=== PATIENT | male | born 1950 | race American Indian/Alaskan Native ===

== ENCOUNTER 2018-10-12 05:42 | Observation (INO) | payer MEDICARE ==
[2018-10-12] MEDS ORDERED: ZOFRAN ONE ×2 (06:10→10:27)
[2018-10-12] MEDS ORDERED: ZOFRAN IV ONE (06:16)
[2018-10-12 07:40] LABS: Albumin 3.1 g/dL (3.9-5); Calcium 9.1 mg/dL (8.4-10.2)
--- NOTE | 2018-10-12 07:44 | Emergency Department Report ---
ED Syncope HPI - General Chief Complaint: Syncope Stated Complaint: SYNCOPE Time Seen by Provider: 10/12/18 07:15 Source: patient Exam Limitations: no limitations - History of Present Illness Initial Comments: CC: "I think I was dehydrated." HPI: Mr. Steele is a very pleasant 68-year-old male with his at the bedside who presents via EMS with syncope. He has history of coronary artery disease, CHF, hypertension, diabetes mellitus who presents with syncope. Since Tuesday he has had severe nausea and vomiting. He has been unable to keep down his medication. His explains that he has had these vomiting episodes for several years without a concrete diagnosis. This morning he awakened and a coughing fit. He then passed out. He was arousable by the . then heard yell out for help. She witnessed a subsequent syncopal episode. called 911 at that time. Last hospitalization was in 2007 according to patient and . At that time he was evaluated for a heart attack. He has scheduled cardiac catheter sterilization at the [facility]. He was told that he may have blockages in his heart. For the past 2 years he has been experiencing severe fatigue. Drinks 7-8 alcoholic drinks daily. Started to cut down on this amount 3 weeks ago. He smokes marijuana also. PCP is affiliated with the [facility]. 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 Smokes marijuana. Drinks 7-8 drinks daily. Timing/Prior Episodes: multiple episodes today Precipitating Factors: Positive: other (cough) Loss of Consciousness: brief (seconds) Current Symptoms: back to normal - Related Data Allergies/Adverse Reactions: Allergies No Known Allergies Allergy (Verified 10/12/18 06:16) ED Review of Systems ROS: Stated complaint: SYNCOPE Other details as noted in HPI Comment: All other systems reviewed and negative Constitutional: malaise. denies: fever Cardiovascular: syncope. denies: chest pain Gastrointestinal: denies: abdominal pain ED Past Medical Hx - Past Medical History Previous Medical History?: Yes Hx Hypertension: Yes Hx Heart Attack/AMI: Yes (2007) Hx Congestive Heart Failure: Yes Hx Diabetes: Yes Hx GERD: Yes Additional medical history: need pace maker - Social History Smoking Status: Unknown if ever smoked Substance Use Type: Marijuana ED Physical Exam - General Limitations: No Limitations General appearance: alert, in no apparent distress - Head Head exam: Present: atraumatic, normocephalic - Eye Eye exam: Present: normal appearance - ENT ENT exam: Present: mucous membranes moist - Neck Neck exam: Present: normal inspection, full ROM - Respiratory Respiratory exam: Present: normal lung sounds bilaterally. Absent: respiratory distress, wheezes, rales, rhonchi - Cardiovascular Cardiovascular Exam: Present: regular rate, normal rhythm, normal heart sounds. Absent: systolic murmur, diastolic murmur, rubs, gallop - GI/Abdominal GI/Abdominal exam: Present: soft, normal bowel sounds. Absent: distended, tenderness, guarding, rebound - Rectal Rectal exam: Present: deferred - Extremities Exam Extremities exam: Present: normal inspection - Back Exam Back exam: Present: normal inspection - Neurological Exam Neurological exam: Present: alert, oriented X3 - Psychiatric Psychiatric exam: Present: normal affect, normal mood - Skin Skin exam: Present: warm, dry, intact, normal color. Absent: rash ED Course Vital Signs 10/12/18 10/12/18 10/12/18 05:52 06:00 06:07 Temperature 97.5 F L Pulse Rate 66 Respiratory 19 Rate Blood Pressure 88/60 Blood Pressure [Right] O2 Sat by Pulse 94 98 Oximetry 10/12/18 10/12/18 10/12/18 06:16 06:30 08:04 Temperature Pulse Rate 67 65 Respiratory 21 21 19 Rate Blood Pressure 167/99 119/78 Blood Pressure 109/73 [Right] O2 Sat by Pulse 99 98 97 Oximetry ED Medical Decision Making - Lab Data Result diagrams: 10/12/18 07:48 10/12/18 06:54 Laboratory Results - last 24 hr 10/12/18 10/12/18 10/12/18 06:54 07:48 07:48 WBC 9.4 RBC 4.84 Hgb 15.2 Hct 45.7 H MCV 94 MCH 31 MCHC 33 RDW 15.1 Plt Count 239 Lymph % (Auto) Account Group Supervisor [place] % (Auto) Account Group Supervisor Eos % (Auto) Account Group Supervisor Baso % (Auto) Account Group Supervisor Lymph # Account Group Supervisor [place] # Account Group Supervisor Eos # Account Group Supervisor Baso # Account Group Supervisor Seg Neutrophils % Account Group Supervisor Seg Neutrophils # Account Group Supervisor Sodium 132 L Potassium 3.7 Chloride 93.1 L Carbon Dioxide 23 Anion Gap 20 BUN 37 H Creatinine 3.8 H Estimated GFR 19 BUN/Creatinine Ratio 10 Glucose 242 H Calcium 9.1 Total Bilirubin 1.40 H AST 18 ALT 12 Alkaline Phosphatase 66 Troponin T 0.026 Total Protein 6.9 Albumin 3.1 L Albumin/Globulin Ratio 0.8 - EKG Data 10/12/18 07:43 EKG obtained 0555 Normal sinus rhythm rate left axis deviation prolonged QT interval no significant ST elevation positive LVH and nonspecific T-wave pattern - Medical Decision Making Mr. Steele has history of CAD, CHF, hypertension and diabetes mellitus, alcohol abuse who presents with 2 single episodes witnessed by . The episodes were brief. Differential diagnosis includes orthostatic hypotension, vasovagal syncope, arrhythmia. I do not suspect pulmonary embolism with this presentation. He does not have tachycardia, dyspnea or chest pain currently. He did have hypotension upon arrival as reported to me by triage nurse. Hypotension resolved with IV fluid. Has had GI fluid loss with hx of vomiting for the past 5 days. Admitted to hospitalist service for cardiac monitoring and further evaluation. He has outpatient cardiac catheterization scheduled on Tuesday. Upon lab review, abnormal kidney function revealed. Patient and did inform me that Mr. Steele did have declining kidney function which has been followed at the [facility]. Upon review of old labs, GFR has decreased from 30 to 19 from 2016. Critical care attestation.: If time is entered above; I have spent that time in minutes in the direct care of this critically ill patient, excluding procedure time. ED Disposition Clinical Impression: Syncope, [id number] kidney injury Disposition: OP ADMIT IP TO THIS HOSP Is pt being admited?: Yes Does the pt Need Aspirin: No Condition: Stable Instructions: Syncope (ED)
[2018-10-12 08:02] LABS: Hematocrit 45.7 % (35.5-45.6); Hemoglobin 15.2 gm/dl (11.8-15.2); Mean Corpuscular HGB Conc 33 % (32-34); Mean Corpuscular Volume 94 fl (84-94); Platelet Count 239 K/mm3 (140-440); Red Blood Count 4.84 M/mm3 (3.65-5.03); Red Cell Distribution Width 15.1 % (13.2-15.2)
[2018-10-12] MEDS ORDERED: SODIUM CHLORIDE FLUSH SYRINGE 10 ML IV PRN (08:49)
[2018-10-12] MEDS ORDERED: ZOFRAN IV PRN (08:49)
[2018-10-12] MEDS ORDERED: REGLAN IV PRN (08:49)
[2018-10-12] MEDS ORDERED: TYLENOL PO PRN (08:49)
[2018-10-12] MEDS ORDERED: D50W (25GM) Syringe IV PRN (08:50)
[2018-10-12] MEDS ORDERED: NACL 0.9% 1000 ML 1,000 ML IV SCH (09:00)
[2018-10-12] MEDS: LOVENOX SUB-Q SCH ×2 (11:37→11:44)
[2018-10-12] MEDS: SODIUM CHLORIDE FLUSH SYRINGE 10 ML IV SCH ×2 (11:38→21:36)
[2018-10-12] MEDS: PROTONIX IV SCH (12:00)
[2018-10-12] MEDS: HumaLOG SUB-Q SCH ×3 (12:02→21:36)
--- NOTE | 2018-10-12 15:04 | Cat Scan Report ---
CT ABDOMEN AND PELVIS WITHOUT CONTRAST HISTORY: vomiting COMPARISON: None. TECHNIQUE: Axial CT images were obtained through the abdomen and pelvis without IV contrast. Sagittal and coronal reformatted images. All CT scans at this location are performed using CT dose reduction for ALARA by means of automated exposure control. FINDINGS: CT ABDOMEN: Lung Bases: The visualized lung bases are clear. Mild cardiomegaly is noted. Liver: The liver is slightly sunken and cirrhotic. Biliary: 1.2 cm calcified gallstone is noted in the fundus of the gallbladder. No biliary dilatation or inflammation. Spleen: No significant abnormality. Unenlarged. Pancreas: No significant abnormality. Adrenals: No significant abnormality. Kidneys: No significant abnormality. Lymphatics: No lymphadenopathy. Vasculature: Mild diffuse aortic calcifications. No aneurysm. Bowel/Peritoneum: There are multiple small bowel loops in the left and lower abdomen which demonstrat e mild circumferential thickening and contain mild fluid. There is no evidence for pneumatosis, obstr uction or free air. The remaining bowel loops are unremarkable. Small ascites is noted in the pelvis and paracolic gutters. Normal appendix. CT PELVIS: : No significant abnormality. Osseous Structures: Mild degenerative changes. Additional Findings: Small right paraumbilical hernia containing fat is identified with a 1 cm neck. IMPRESSION: Mild circumferential thickening of multiple small bowel loops are identified consistent with a nonspe cific enteritis. Cirrhosis of the liver. Small ascites. Gallstone. Mild cardiomegaly. Small right paraumbilical hernia. Signer Name: Jaden Post Jr, MD Signed: 10/12/2018 3:00 PM Workstation Name: [id number]
[2018-10-12 19:32] LABS: Bilirubin,Urine NEG (Negative); Blood,Urine NEG (Negative); Color,Urine Amber (Yellow); Hyaline Casts,Urine 2 /LPF; RBC,Urine < 1.0 /HPF (0.0-6.0); Urobilinogen,Urine < 2.0 mg/dL (<2.0)
--- NOTE | 2018-10-12 22:43 | History and Physical Report ---
History of Present Illness Date of admission: 10/12/18 08:49 History of present illness: 68m who pw intractable n/v and syncope hx of chf ef 30% plan npo, PPI, GI consult fup echo, zofran and reglan prn Medications and Allergies Allergies Allergy/AdvReac Type Severity Reaction Status Date / Time No Known Allergies Allergy Verified 10/12/18 06:16 Home Medications Medication Instructions Recorded Confirmed Last Taken Type Aspirin [Aspirin BABY CHEW TAB] 81 mg PO QAM 10/12/18 10/12/18 Unknown History Atorvastatin [Lipitor Tab] 40 mg PO QHS 10/12/18 10/12/18 Unknown History Carvedilol [Coreg] 25 mg PO DAILY 10/12/18 10/12/18 Unknown History Pantoprazole [Protonix] 40 mg PO QDAY 10/12/18 10/12/18 Unknown History Saxagliptin HCl [Onglyza] 5 mg PO QDAY 10/12/18 10/12/18 Unknown History Sertraline [Zoloft] 100 mg PO QDAY 10/12/18 10/12/18 Unknown History Spironolactone [Aldactone] 25 mg PO QDAY 10/12/18 10/12/18 Unknown History Vitamin D3 1,000 UNIT TAB 1,000 units PO 3XW 10/12/18 10/12/18 Unknown History amLODIPine [Norvasc] 10 mg PO DAILY 10/12/18 10/12/18 Unknown History busPIRone [Buspar] 5 mg PO QDAY 10/12/18 10/12/18 Unknown History glipiZIDE [Glucotrol] 10 mg PO QDAY 10/12/18 10/12/18 Unknown History Active Meds: Active Medications Acetaminophen (Tylenol) 650 mg PO Q4H PRN PRN Reason: Pain MILD(1-3)/Fever >100.5/ARCEO Dextrose (D50w (25gm) Syringe) 50 ml IV PRN PRN PRN Reason: Hypoglycemia Enoxaparin Sodium (Lovenox) 30 mg SUB-Q QDAY [facility] Last Admin: 10/12/18 11:44 Dose: Not Given Documented by: Sodium Chloride (Nacl 0.9% 1000 Ml) 1,000 mls @ 42 mls/hr IV DIRECT HERNANDEZ Stop: 10/14/18 08:59 Last Admin: 10/12/18 11:36 Dose: 100 mls/hr Documented by: Insulin Human Lispro (Humalog) 0 unit SUB-Q ACHS [facility]; Protocol Last Admin: 10/12/18 21:36 Dose: Not Given Documented by: Metoclopramide HCl (Reglan) 10 mg IV Q6HR PRN PRN Reason: Nausea And Vomiting Last Admin: 10/12/18 11:36 Dose: 10 mg Documented by: Ondansetron HCl (Zofran) 4 mg IV Q8HR PRN PRN Reason: Nausea And Vomiting Last Admin: 10/12/18 10:28 Dose: 4 mg Documented by: Pantoprazole Sodium (Protonix) 40 mg IV QDAY [facility] Last Admin: 10/12/18 12:00 Dose: 40 mg Documented by: Sodium Chloride (Sodium Chloride Flush Syringe 10 Ml) 10 ml IV BID [facility] Last Admin: 10/12/18 21:36 Dose: 10 ml Documented by: Sodium Chloride (Sodium Chloride Flush Syringe 10 Ml) 10 ml IV PRN PRN PRN Reason: LINE FLUSH Exam - Constitutional Vitals: Temp Pulse Resp BP Pulse Ox 99.6 F 74 18 159/85 96 10/12/18 20:09 10/12/18 20:09 10/12/18 20:09 10/12/18 20:09 10/12/18 20:09 Results - Labs CBC & Chem 7: 10/12/18 07:48 10/12/18 06:54 Labs: Laboratory Last Values WBC 9.4 K/mm3 (4.5-11.0) 10/12/18 07:48 RBC 4.84 M/mm3 (3.65-5.03) 10/12/18 07:48 Hgb 15.2 gm/dl (11.8-15.2) 10/12/18 07:48 Hct 45.7 % (35.5-45.6) H 10/12/18 07:48 MCV 94 fl (84-94) 10/12/18 07:48 MCH 31 pg (28-32) 10/12/18 07:48 MCHC 33 % (32-34) 10/12/18 07:48 RDW 15.1 % (13.2-15.2) 10/12/18 07:48 Plt Count 239 K/mm3 (140-440) 10/12/18 07:48 Lymph % (Auto) Pharmaceutical Laboratory Technician 10/12/18 07:48 [place] % (Auto) Pharmaceutical Laboratory Technician 10/12/18 07:48 Eos % (Auto) Pharmaceutical Laboratory Technician 10/12/18 07:48 Baso % (Auto) Pharmaceutical Laboratory Technician 10/12/18 07:48 Lymph # Pharmaceutical Laboratory Technician 10/12/18 07:48 [place] # Pharmaceutical Laboratory Technician 10/12/18 07:48 Eos # Pharmaceutical Laboratory Technician 10/12/18 07:48 Baso # Pharmaceutical Laboratory Technician 10/12/18 07:48 Seg Neutrophils % Pharmaceutical Laboratory Technician 10/12/18 07:48 Seg Neutrophils # Pharmaceutical Laboratory Technician 10/12/18 07:48 Sodium 132 mmol/L (137-145) L 10/12/18 06:54 Potassium 3.7 mmol/L (3.6-5.0) 10/12/18 06:54 Chloride 93.1 mmol/L (98-107) L 10/12/18 06:54 Carbon Dioxide 23 mmol/L (22-30) 10/12/18 06:54 20 mmol/L 10/12/18 06:54 BUN 37 mg/dL (9-20) H 10/12/18 06:54 3.8 mg/dL (0.8-1.5) H 10/12/18 06:54 Estimated GFR 19 ml/min 10/12/18 06:54 10 % 10/12/18 06:54 Glucose 242 mg/dL (75-100) H 10/12/18 06:54 POC Glucose 149 (70-105) H 10/12/18 21:20 8.5 % (4-6) H 10/12/18 07:48 Calcium 9.1 mg/dL (8.4-10.2) 10/12/18 06:54 1.40 mg/dL (0.1-1.2) H 10/12/18 06:54 AST 18 units/L (5-40) 10/12/18 06:54 ALT 12 units/L (7-56) 10/12/18 06:54 66 units/L (35-129) 10/12/18 06:54 0.026 ng/mL (0.00-0.029) 10/12/18 07:48 6.9 g/dL (6.3-8.2) 10/12/18 06:54 3.1 g/dL (3.9-5) L 10/12/18 06:54 0.8 % 10/12/18 06:54 [place] (Yellow) 10/12/18 19:00 Slightly-cloudy (Clear) 10/12/18 19:00 5.0 (5.0-7.0) 10/12/18 19:00 Ur Specific [place] 1.017 (1.003-1.030) 10/12/18 19:00 30 mg/dl mg/dL (Negative) 10/12/18 19:00 Neg mg/dL (Negative) 10/12/18 19:00 Neg mg/dL (Negative) 10/12/18 19:00 Neg (Negative) 10/12/18 19:00 Neg (Negative) 10/12/18 19:00 Neg (Negative) 10/12/18 19:00 < 2.0 mg/dL (<2.0) 10/12/18 19:00 Ur Leukocyte Esterase Neg (Negative) 10/12/18 19:00 1.0 /HPF (0.0-6.0) 10/12/18 19:00 < 1.0 /HPF (0.0-6.0) 10/12/18 19:00 U Epithel Cells (Auto) < 1.0 /HPF (0-13.0) 10/12/18 19:00 Hyaline Casts 2 /LPF 10/12/18 19:00
--- NOTE | 2018-10-13 02:15 | Consultation ---
REFERRING PHYSICIAN: Sherita Rodrigez MD. INDICATION: 1. Nausea, vomiting. 2. Possible cirrhosis. HISTORY OF PRESENT ILLNESS: The patient is a 68-year-old black male with a history of coronary artery disease, CHF, hypertension, diabetes, who presented after a syncopal episode. The patient reports since partying last weekend, he has had some nausea, vomiting. He reports when he does that these symptoms do happen. The patient reportedly had a syncopal episode and subsequently was brought to the Emergency Room for evaluation. The patient reports since coming to the Emergency Room, he had two more bouts of nausea and vomiting. He reports he would like to ensure that there is no other underlying problem for nausea and vomiting. The patient subsequently had evaluation in the Emergency Room included a CT scan, which showed signs of cirrhosis. The patient subsequently was admitted and GI consulted. He denies any other specific problems or complaints. PAST MEDICAL HISTORY: 1. CHF. 2. Hypertension. 3. Diabetes. MEDICATIONS: Reviewed and updated in chart. ALLERGIES: No known drug allergies. SOCIAL HISTORY: The patient does drink 7-8 drinks per day, but reports he has been cutting down over the recent weeks. FAMILY HISTORY: Negative for colon cancer, IBD, or liver disease. REVIEW OF SYSTEMS: GENERAL: Reports mild weakness. HEENT: No visual complaints or tinnitus. PULMONARY: No shortness of breath. No cough. No chest pain. GASTROINTESTINAL: Reports nausea and vomiting. All points of 13-point review of systems otherwise negative. PHYSICAL EXAMINATION: VITAL SIGNS: Temperature of 97.8, pulse 72, respirations 18, blood pressure 140/80. GENERAL: Fairly nourished black male in no acute distress. HEENT: Pupils equal, round and reactive. PULMONARY: Clear to auscultation bilaterally. CARDIOVASCULAR: Regular rhythm. Normal S1, S2. ABDOMEN: Positive bowel sounds, soft. SKIN: No obvious rashes. LABORATORY DATA: Pertinent for CBC within normal limits. Sodium 132, potassium 3.7, chloride 93, CO2 23, BUN and creatinine of 37 and 3.8. AST, ALT normal. Total bilirubin 1.4, alkaline phosphatase 66. CT scan shows signs of cirrhosis and signs of nonspecific enteritis. ASSESSMENT AND PLAN: A 68-year-old male who has a history of 7-8 alcoholic drinks per day and past medical history as noted, now reports that after the weekend, he has developed nausea, vomiting and did so partying this last weekend. CT scan showed enteritis as well as cirrhosis. The patient may have underlying cirrhosis, which may be secondary to alcohol. He does have nausea and vomiting, which has bothered him. He would like to rule out upper gastrointestinal pathology, though may be related to enteritis. PLAN: 1. Follow labs. 2. PPI daily. 3. Antiemetics per primary team. 4. Clear liquid diet. 5. We will order liver related labs and workup. 6. Clear liquid diet and advance based on progress. 7. Plan EGD in a.m. JOB# [id number] CAB/NTS
[2018-10-13 04:03] LABS: Basophils # (Auto) 0.1 K/mm3 (0.0-0.1); Basophils % (Auto) 0.8 % (0.0-1.8); Eosinophils # (Auto) 0.3 K/mm3 (0.0-0.4); Eosinophils % (Auto) 3.4 % (0.0-4.3); Hemoglobin 13.7 gm/dl (11.8-15.2); Lymphocytes # (Auto) 1.7 K/mm3 (1.2-5.4); Lymphocytes % (Auto) 20.5 % (13.4-35.0); Mean Corpuscular HGB Conc 34 % (32-34); Mean Corpuscular Volume 93 fl (84-94); Monocytes # (Auto) 0.7 K/mm3 (0.0-0.8); Monocytes % (Auto) 7.9 % (0.0-7.3); Platelet Count 217 K/mm3 (140-440); Red Cell Distribution Width 15.2 % (13.2-15.2)
[2018-10-13 04:27] LABS: Calcium 9.1 mg/dL (8.4-10.2)
[2018-10-13] MEDS ORDERED: REGLAN IV PRN (08:00)
[2018-10-13] MEDS: HumaLOG SUB-Q SCH ×2 (08:17→11:56)
[2018-10-13] MEDS ORDERED: APRESOLINE IV PRN (09:00)
[2018-10-13] MEDS: PROTONIX IV SCH (09:37)
[2018-10-13] MEDS: SODIUM CHLORIDE FLUSH SYRINGE 10 ML IV SCH (09:38)
[2018-10-13] MEDS: LOVENOX SUB-Q SCH (09:38)
[2018-10-13] MEDS ORDERED: NACL 0.9% 1000 ML 1,000 ML IV SCH (11:00)
--- NOTE | 2018-10-13 11:04 | Progress Note ---
Hospitalist Physical - Constitutional Vitals: Temp Pulse Resp BP Pulse Ox 98.9 F 74 18 148/78 98 10/13/18 07:44 10/13/18 07:44 10/13/18 07:44 10/13/18 10:49 10/13/18 07:44 Results - Labs CBC & Chem 7: 10/13/18 03:50 10/13/18 03:50 Labs: Laboratory Last Values WBC 8.5 K/mm3 (4.5-11.0) 10/13/18 03:50 RBC 4.40 M/mm3 (3.65-5.03) 10/13/18 03:50 Hgb 13.7 gm/dl (11.8-15.2) 10/13/18 03:50 Hct 41.0 % (35.5-45.6) 10/13/18 03:50 MCV 93 fl (84-94) 10/13/18 03:50 MCH 31 pg (28-32) 10/13/18 03:50 MCHC 34 % (32-34) 10/13/18 03:50 RDW 15.2 % (13.2-15.2) 10/13/18 03:50 Plt Count 217 K/mm3 (140-440) 10/13/18 03:50 Lymph % (Auto) 20.5 % (13.4-35.0) 10/13/18 03:50 [place] % (Auto) 7.9 % (0.0-7.3) H 10/13/18 03:50 Eos % (Auto) 3.4 % (0.0-4.3) 10/13/18 03:50 Baso % (Auto) 0.8 % (0.0-1.8) 10/13/18 03:50 Lymph # 1.7 K/mm3 (1.2-5.4) 10/13/18 03:50 [place] # 0.7 K/mm3 (0.0-0.8) 10/13/18 03:50 Eos # 0.3 K/mm3 (0.0-0.4) 10/13/18 03:50 Baso # 0.1 K/mm3 (0.0-0.1) 10/13/18 03:50 Seg Neutrophils % 67.4 % (40.0-70.0) 10/13/18 03:50 Seg Neutrophils # 5.7 K/mm3 (1.8-7.7) 10/13/18 03:50 Sodium 137 mmol/L (137-145) 10/13/18 03:50 Potassium 3.4 mmol/L (3.6-5.0) L 10/13/18 03:50 Chloride 95.4 mmol/L (98-107) L 10/13/18 03:50 Carbon Dioxide 24 mmol/L (22-30) 10/13/18 03:50 21 mmol/L 10/13/18 03:50 BUN 39 mg/dL (9-20) H 10/13/18 03:50 3.3 mg/dL (0.8-1.5) H 10/13/18 03:50 Estimated GFR 23 ml/min 10/13/18 03:50 12 % 10/13/18 03:50 Glucose 153 mg/dL (75-100) H 10/13/18 03:50 POC Glucose 156 (70-105) H 10/13/18 07:54 8.5 % (4-6) H 10/12/18 07:48 Calcium 9.1 mg/dL (8.4-10.2) 10/13/18 03:50 148.1 ng/mL (13.0-400.0) 10/13/18 05:31 1.40 mg/dL (0.1-1.2) H 10/12/18 06:54 AST 18 units/L (5-40) 10/12/18 06:54 ALT 12 units/L (7-56) 10/12/18 06:54 66 units/L (35-129) 10/12/18 06:54 0.026 ng/mL (0.00-0.029) 10/12/18 07:48 6.9 g/dL (6.3-8.2) 10/12/18 06:54 3.1 g/dL (3.9-5) L 10/12/18 06:54 0.8 % 10/12/18 06:54 [place] (Yellow) 10/12/18 19:00 Slightly-cloudy (Clear) 10/12/18 19:00 5.0 (5.0-7.0) 10/12/18 19:00 Ur Specific [place] 1.017 (1.003-1.030) 10/12/18 19:00 30 mg/dl mg/dL (Negative) 10/12/18 19:00 Neg mg/dL (Negative) 10/12/18 19:00 Neg mg/dL (Negative) 10/12/18 19:00 Neg (Negative) 10/12/18 19:00 Neg (Negative) 10/12/18 19:00 Neg (Negative) 10/12/18 19:00 < 2.0 mg/dL (<2.0) 10/12/18 19:00 Ur Leukocyte Esterase Neg (Negative) 10/12/18 19:00 1.0 /HPF (0.0-6.0) 10/12/18 19:00 < 1.0 /HPF (0.0-6.0) 10/12/18 19:00 U Epithel Cells (Auto) < 1.0 /HPF (0-13.0) 10/12/18 19:00 Hyaline Casts 2 /LPF 10/12/18 19:00 Active Medications - Current Medications Current Medications: Generic Name Dose Route Start Last Admin Trade Name Freq PRN Reason Stop Dose Admin Acetaminophen 650 mg 10/12/18 08:49 Tylenol PO Q4H PRN Pain MILD(1-3)/Fever >100.5/ARCEO Dextrose 50 ml 10/12/18 08:50 D50w (25gm) Syringe IV PRN PRN Hypoglycemia Enoxaparin Sodium 30 mg 10/12/18 10:00 10/13/18 09:38 Lovenox SUB-Q Not Given QDAY [facility] Hydralazine HCl 10 mg 10/13/18 09:00 10/13/18 09:37 Apresoline IV 10 mg Q6H PRN Administration Hypertension Sodium Chloride 1,000 mls @ 42 mls/hr 10/12/18 09:00 10/12/18 11:36 Nacl 0.9% 1000 Ml IV 10/14/18 08:59 100 mls/hr DIRECT HERNANDEZ Administration Sodium Chloride 1,000 mls @ 50 mls/hr 10/13/18 11:00 Nacl 0.9% 1000 Ml IV DIRECT HERNANDEZ Insulin Human Lispro 0 unit 10/12/18 11:30 10/13/18 08:17 Humalog SUB-Q Not Given ACHS HERNANDEZ Protocol Metoclopramide HCl 5 mg 10/13/18 08:00 Reglan IV Q6HR PRN Nausea And Vomiting Ondansetron HCl 4 mg 10/12/18 08:49 10/12/18 10:28 Zofran IV 4 mg Q8HR PRN Administration Nausea And Vomiting Pantoprazole Sodium 40 mg 10/12/18 12:00 10/13/18 09:37 Protonix IV 40 mg QDAY HERNANDEZ Administration Sodium Chloride 10 ml 10/12/18 10:00 10/13/18 09:38 Sodium Chloride Flush Syringe 10 Ml IV 10 ml BID HERNANDEZ Administration Sodium Chloride 10 ml 10/12/18 08:49 Sodium Chloride Flush Syringe 10 Ml IV PRN PRN LINE FLUSH
--- NOTE | 2018-10-13 11:40 | Discharge Summary ---
Providers - Providers Date of Admission: 10/12/18 08:49 Attending physician: MARCELO GRIFFITH MD 10/12/18 11:28 Consult to Physician [CONS] Routine Comment: called office/ george Consulting Provider: HANNAH PUGH Physician Instructions: Reason For Exam: intractable nausea and vomitting Primary care physician: MELODY CROOK MD Hospitalization Condition: Stable Disposition: DC-01 TO HOME OR SELFCARE Time spent for discharge: 33 mins Core Measure Documentation - Palliative Care Palliative Care/ Comfort Measures: Not Applicable - Core Measures Any of the following diagnoses?: none Exam - Constitutional Vitals: Temp Pulse Resp BP Pulse Ox 98.9 F 74 18 148/78 98 10/13/18 07:44 10/13/18 07:44 10/13/18 07:44 10/13/18 10:49 10/13/18 07:44 General appearance: Present: no acute distress, well-nourished - EENT Eyes: Present: PERRL ENT: hearing intact, clear oral mucosa - Neck Neck: Present: supple, normal ROM - Respiratory Respiratory effort: normal Respiratory: bilateral: CTA - Cardiovascular Heart Sounds: Present: S1 & S2. Absent: rub, click - Extremities Extremities: pulses symmetrical, No edema Peripheral Pulses: within normal limits - Abdominal General gastrointestinal: Present: soft, non-tender, non-distended, normal bowel sounds Male genitourinary: Present: normal - Integumentary Integumentary: Present: clear, warm, dry - Musculoskeletal Musculoskeletal: gait normal, strength equal bilaterally - Psychiatric Psychiatric: appropriate mood/affect, intact judgment & insight - Neurologic Neurologic: CNII-XII intact, moves all extremities Plan Follow up with: PRIMARY CARE, [Primary Care Provider] - 3-5 Days
--- NOTE | 2018-10-13 13:19 | Anesthesia Consultation ---
Anesthesia Consult and Med Hx Date of service: 10/13/18 - Airway Anesthetic Teeth Evaluation: Edentulous ROM Head & Neck: Adequate Mental/Hyoid Distance: Adequate Mallampati Class: Class II Intubation Access Assessment: Probably Good - Pulmonary Exam CTA: Yes - Cardiac Exam Cardiac Exam: RRR - Pre-Operative Health Status ASA Pre-Surgery Classification: ASA3 Proposed Anesthetic Plan: MAC - Pulmonary Hx Smoking: Yes (Marijuana- six days ago) Hx Respiratory Symptoms: Yes (Hx. CHF) SOB: No COPD: No - Cardiovascular System Hx Hypertension: Yes Hx Coronary Artery Disease: Yes Hx Heart Attack/AMI: Yes (2007) - Central Nervous System Hx Psychiatric Problems: Yes (PTSD, [place] Vet.) - Endocrine Hx Non-Insulin Dependent Diabetes: Yes - Other Systems Hx Substance Use: Yes (Marijuana) Hx Obesity: No
[2018-10-13] MEDS ORDERED: DIPRIVAN 10 MG/ML IV ONE (13:26)
[2018-10-13] MEDS ORDERED: SUBLIMAZE ONE (13:26)
--- NOTE | 2018-10-13 13:35 | Post Operative Note ---
Pre-op diagnosis: epigastric pain, nausea Post-op diagnosis: same Findings: EGD: grade II esophagitis 36-40 cm from gums (bx's) - 3 1/2 cm hiatal hernia - gastritis (bx's) - negative other Procedure: EGD w/ bx Anesthesia: MAC Surgeon: CARLOS MCCAIN Estimated blood loss: none Pathology: list Specimen disposition: to lab Condition: stable Disposition: floor
[2018-10-13 14:17] VITALS: BP 166/90
--- NOTE | 2018-10-13 14:24 | Anesthesia Day of Surgery ---
Anesthesia Day of Surgery - Day of Surgery Patient Examined: Yes Patient H&P Reviewed: Yes Patient is NPO: Yes
--- NOTE | 2018-10-13 14:50 | Operative Report ---
PROCEDURE: EGD with cold biopsy. INDICATION: 1. Epigastric pain. 2. Nausea, vomiting. MEDICATIONS: Propofol per DISPENSARY TECHNICIAN. COMPLICATIONS: None. DESCRIPTION OF PROCEDURE: The patient brought to procedure suite. The patient had the procedure discussed with him at length. All risks, complications, and benefits discussed after which the patient signed for the procedure to be performed. The patient was placed in flat decubitus position. Mouth block was placed in the patient's oral cavity. After adequate sedation medication as above, endoscope was introduced into the mouth and brought to the level of the second portion of duodenum. Retroflexion view performed. The patient's vital signs remained stable throughout the procedure. FINDINGS: There was a 3.5 cm hiatal hernia at GE junction 40 cm from the gums. There was grade 2 esophagitis which extended 36-40 cm from the gums. This was most likely related to nausea, vomiting and reflux. Biopsies were taken and sent to pathology. The remaining esophagus otherwise appeared to be normal. There was mild to moderate antral and body gastritis noted. No peptic ulcers were noted. Biopsies were taken and sent to pathology. Remaining stomach otherwise appeared to be normal. The duodenum appeared to be normal. Retroflexion view performed in the stomach showed no other pathology other than noted above. The patient tolerated the procedure well. No complications during the procedure. IMPRESSION: 1. Esophagitis with biopsies performed. 2. Hiatal hernia. 3. Gastritis, biopsies performed. 4. Otherwise, normal EGD. RECOMMENDATIONS: 1. Follow up biopsy results. 2. Stool for H. pylori positive, we will treat. 3. PPI daily. 4. Advance diet. 5. If tolerating p.o., okay to discharge from GI standpoint. JOB# [id number] CAB/NTS
[2018-10-14] MEDS ORDERED: NORVASC PO SCH (10:00)
[2018-10-14] MEDS ORDERED: ZOLOFT PO SCH (10:00)
[2018-10-14] MEDS ORDERED: BABY ASPIRIN PO SCH (10:00)
[2018-10-14] MEDS ORDERED: GLUCOTROL PO SCH (10:00)
[2018-10-14] MEDS ORDERED: VITAMIN D3 1000 UNIT PO SCH (10:00)
[2018-10-14] MEDS ORDERED: PROTONIX PO SCH (10:00)
[2018-10-14] MEDS ORDERED: COREG PO SCH (10:00)
[2018-10-14] MEDS ORDERED: TRADJENTA PO SCH (10:00)
[2018-10-14] MEDS ORDERED: ALDACTONE PO SCH (10:00)
[2018-10-14] MEDS ORDERED: NON-FORMULARY (Saxagliptin Hcl [Onglyza] 5 MG) PO SCH (10:00)
[2018-10-14] MEDS ORDERED: BUSPAR PO SCH (10:00)
== END 2018-10-13 15:28 | disposition home or self-care (01) ==
LOC: ED 05:42 → 2B-ACE 08:49
PROVIDERS: ADMIT Internal Medicine; ATTEND Internal Medicine
DX: K20.9 Esophagitis, unspecified (principal); R55 Syncope and collapse; K44.9 Diaphragmatic hernia without obstruction or gangrene; K29.70 Gastritis, unspecified, without bleeding
CPT/HCPCS: 36415; 43239; 74176; 80048; 80053; 81001; 82728; 82962; 83036; 84484; 85025; 86038; 88305; 88312; 88342; 93005; 93010; 93306; 96361; 96374; 96375; 96376; 99284; C9113; G0378; J0360; J1650; J2405; J2704; J2765; J3010; J7030; J1815